=== PATIENT | male | born 1960 | race Asian ===

== ENCOUNTER 2017-04-29 12:51 | Emergency (ER) | payer OTHER ==
[~2017-04-29] VITALS: Ht 170.2 cm; Wt 71.8 kg
[2017-04-29] MEDS ORDERED: AMLO-511 PO (12:54)
[2017-04-29] MEDS ORDERED: LIDOCAINE HCL 1% 10 ML VIAL INJ ONE (13:30)
[2017-04-29] MEDS: IBUPROFEN 800 MG TABLET PO ONE ×2 (13:34→13:37)
[2017-04-29] MEDS ORDERED: IBUPROFEN 200 MG TABLET PO ONE (14:45)
[2017-04-29] MEDS ORDERED: CEPHALEXIN MONOHYDRATE 500 MG CAPSULE PO ONE (14:45)
[2017-04-29 15:07] VITALS: BP 136/88
== END 2017-04-29 15:08 | disposition home or self-care (01) ==
LOC: EMS 12:53
DX: S92.421B Displaced fracture of distal phalanx of right great toe, initial encounter for open fracture (principal); F17.210 Nicotine dependence, cigarettes, uncomplicated; I10 Essential (primary) hypertension; W20.8XXA Other cause of strike by thrown, projected or falling object, initial encounter; Y93.89 Activity, other specified; Y92.89 Other specified places as the place of occurrence of the external cause; Y99.8 Other external cause status
CPT/HCPCS: 12001; 73660; 99284; J3490

== ENCOUNTER 2017-05-11 12:22 | Emergency (ER) | payer OTHER ==
[~2017-05-11] VITALS: Ht 170.2 cm; Wt 71.8 kg
[~2017-05-11 12:22] MED LIST: AMLO-511 PO
[2017-05-11 12:23] VITALS: BP 148/90
[2017-05-11] MEDS ORDERED: CEPH250 PO (12:32)
== END 2017-05-11 13:12 | disposition home or self-care (01) ==
LOC: EMS 12:25
DX: S91.119D Laceration without foreign body of unspecified toe without damage to nail, subsequent encounter (principal); I10 Essential (primary) hypertension; F17.210 Nicotine dependence, cigarettes, uncomplicated; X58.XXXD Exposure to other specified factors, subsequent encounter
CPT/HCPCS: 99281